=== PATIENT | female | born 1970 | race Caucasian/White ===

== ENCOUNTER 2022-06-16 07:59 | Emergency (ER) | payer MEDICAID, OTHER ==
[~2022-06-16] VITALS: Ht 154.9 cm; Wt 93.4 kg
[~2022-06-16 07:59] MED LIST: LOSA50TA57 PO
[2022-06-16 08:06] VITALS: BP 151/77
--- NOTE | 2022-06-16 08:09 | NUR ---
AMBULATED TO BED 11
--- NOTE | 2022-06-16 08:35 | NUR ---
52 y/o F BIB self from home c/o epigastic pain with associated nausea x 3 days. Patient A&Ox4, ambulatory, also states left sided chest pain since last night. Pt states epigastric pain 10/10, stabbing/constant, radiating to R flank. Denies vomiting, constipation, fever, chills, urinary symptoms. States Tylenol without relief. Pt placed onto cardiac cath lab manager. Bed locked in lowest position, side rails x 1. PMH: HTN, DM NKA
--- NOTE | 2022-06-16 08:38 | NUR ---
RAD at bedside
--- NOTE | 2022-06-16 08:38 | NUR ---
Lab at bedside
[2022-06-16] MEDS ORDERED: DICYCLOMINE HCL LIQUID 10 MG/5 ML UDC ONE (08:49)
[2022-06-16] MEDS ORDERED: ALUMINUM HYD/MAG/SIMETHICONE 30 ML UDC ONE (08:49)
[2022-06-16] MEDS: DICYCLOMINE HCL LIQUID 20 MG, ALUMINUM HYD/MAG/SIMETHICONE 30 ML, LIDOCAINE VISCOUS 2% ... PO ONE ×3 (08:52)
[2022-06-16 08:58] LABS: BASOPHILS % (AUTO) 0.4 % (0.0-2.0); EOSINOPHILS # (AUTO) 0.2 K/uL (0-0.4); EOSINOPHILS % (AUTO) 1.7 % (0.0-4.0); HEMOGLOBIN 10.3 g/dL (12.0-16.0); LYMPHOCYTES # (AUTO) 2.8 K/uL (2.5-16.5); LYMPHOCYTES % (AUTO) 24.2 % (20.5-51.1); MEAN CORPUSCULAR HEMOGLOBIN 29 pg (27-31); MEAN CORPUSCULAR HGB CONC 32 g/dL (33-37); MEAN CORPUSCULAR VOLUME 89.6 fL (80-94); MONOCYTES # (AUTO) 0.9 K/uL (0.8-1.0); MONOCYTES % (AUTO) 7.7 % (1.7-9.3); NEUTROPHILS # (AUTO) 7.7 K/uL (1.8-7.7); PLATELET COUNT (AUTO) 344 K/uL (140-450); RED BLOOD CELL COUNT(AUTO) 3.57 MIL/uL (4.20-5.40); RED CELL DISTRIBUTION WIDTH 16.9 % (11.6-13.7); WHITE BLOOD COUNT (AUTO) 11.6 K/uL (4.8-10.8)
[2022-06-16 09:12] LABS: ALBUMIN 3.1 g/dL (3.4-5.0); ASPARTATE AMINOTRANSFERASE 10 U/L (15-37); CHLORIDE 104 mmol/L (98-107); CREATININE 2.6 mg/dL (0.6-1.3); GFR ARICAN-AMERICAN 25 mL/min (>90); SODIUM SERUM 135 mmol/L (136-145); TOTAL BILIRUBIN 0.4 mg/dL (0.0-1.0)
[2022-06-16 09:13] LABS: GLUCOSE 46 mg/dL (74-106)
[2022-06-16 09:14] LABS: UREA NITROGEN, BLOOD 67 mg/dL (7-18)
--- NOTE | 2022-06-16 09:20 | NUR ---
[place], juice and jello provided to pt. Pt completing meal at this time.
[2022-06-16] MEDS: DEXTROSE 50% 50 ML SYR IVP ONE (09:25)
[2022-06-16] MEDS: NACL 0.9% 1,000 ML IV ONE (09:28)
--- NOTE | 2022-06-16 09:30 | NUR ---
Pt states + pain relief 5/10 at this time. environmental monitoring technician remains in place. All pt needs met.
--- NOTE | 2022-06-16 09:34 | NUR ---
Dr. Bray is reevaluating pt at bedside
--- NOTE | 2022-06-16 10:03 | NUR ---
Lab at bedside for redraw
--- NOTE | 2022-06-16 10:03 | NUR ---
US tech at bedside
--- NOTE | 2022-06-16 10:24 | NUR ---
Patient resting in position of comfort. hall monitor in place. Pain alleviated 03/01. Bed locked in lowest position, side rails x 1.
[2022-06-16 10:56] LABS: ALBUMIN 2.9 g/dL (3.4-5.0); ANION GAP 13.1 (8-16); CREATININE 2.6 mg/dL (0.6-1.3); POTASSIUM 5.1 mmol/L (3.5-5.1); TOTAL BILIRUBIN 0.3 mg/dL (0.0-1.0)
[2022-06-16] MEDS ORDERED: SIME125T38 PO (11:29)
[2022-06-16] MEDS ORDERED: FAMO-92 PO (11:29)
--- NOTE | 2022-06-16 11:52 | NUR ---
Dr. Bray is reevaluating pt at bedside
[2022-06-16] MEDS: HYDROcodone/APAP 5/325 MG 1 TAB TAB PO ONE (11:59)
--- NOTE | 2022-06-16 12:00 | NUR ---
IV removed, catheter intact and site benign. Applied folded 4x4 gauze and tape to stop bleeding.
--- NOTE | 2022-06-16 12:15 | NUR ---
Pt states daughter in lobby for transportation.
[2022-06-16 12:25] VITALS: BP 136/82
--- NOTE | 2022-06-16 12:25 | NUR ---
Patient discharged with v/s stable. Written and verbal after care instructions given and explained. Patient alert, oriented and verbalized understanding of instructions. Ambulatory with steady gait. All questions addressed prior to discharge. ID band removed. Patient advised to follow up with PMD. Rx of Pepcid, Mylanta given. Patient educated on indication of medication including possible reaction and side effects. Opportunity to ask questions provided and answered. Copies of RAD results, blood work handed to pt. Work note given.
== END 2022-06-16 12:25 | disposition home or self-care (01) ==
LOC: MED 07:59
DX: E11.22 Type 2 diabetes mellitus with diabetic chronic kidney disease (principal); I12.9 Hypertensive chronic kidney disease with stage 1 through stage 4 chronic kidney disease, or unspecified chronic kidney disease; N18.9 Chronic kidney disease, unspecified; E11.649 Type 2 diabetes mellitus with hypoglycemia without coma; R07.89 Other chest pain; R10.13 Epigastric pain; R53.1 Weakness; Z79.899 Other long term (current) drug therapy
CPT/HCPCS: 36415; 71045; 76705; 80053; 81025; 84484; 84702; 85025; 93005; 96361; 96374; 99291; 99292; J7030; Q0092; 99285